=== PATIENT | male | born 1980 | race Caucasian/White ===

== ENCOUNTER 2016-11-19 09:08 | Emergency (ER) | payer SELFPAY ==
[~2016-11-19] VITALS: Ht 167.6 cm; Wt 75.0 kg
[2016-11-19] MEDS ORDERED: SODIUM CHLORIDE 0.9% 1,000 ML IV ONE (09:25)
[2016-11-19] MEDS ORDERED: LEVETIRACETAM 500MG PREMIX 100 ML IV ONE (09:30)
[2016-11-19 09:37] LABS: BASOPHILS % 0.4 % (0.0-2.0); EOSINOPHILS % 1.1 % (0.0-5.0); HEMATOCRIT. 51.2 % (42.0-52.0); HEMOGLOBIN. 17.4 g/dL (14.0-18.0); LYMPHOCYTES % 35.2 % (20.0-50.0); MEAN CORPUSCULAR HEMOGLOBIN 32.2 pg (28.0-32.0); MEAN CORPUSCULAR VOLUME 94.9 fL (80.0-94.0); MEAN PLATELET VOLUME 10.9 fl (7.4-10.4); MONOCYTES % 8.3 % (2.0-8.0); PLATELET 179 x1000/uL (130-400); WHITE BLOOD COUNT 10.7 x1000/uL (4.5-11.0)
[2016-11-19 09:47] LABS: PARTIAL THROMBOPLASTIN TIME 22.3 sec (24.0-34.0); PROTHROMBIN TIME 10.8 sec
[2016-11-19 09:52] LABS: ALANINE AMINOTRANSFERASE 58 IU/L (13-61); ALBUMIN 4.2 g/dL (3.4-5.0); ANION GAP 19; CALCIUM 8.7 mg/dL (8.5-10.1); CARBON DIOXIDE 22 mEq/L (21-32); CHLORIDE 101 mEq/L (98-107); ETHANOL BLOOD < 10 mg/dL; INDEX HEMOLYSI 1 (1-3); INDEX ICTERIC 1 (1-4); INDEX LIPEMIC 1 (1-3); UREA NITROGEN BLOOD 11 mg/dL (7-21); eGFR > 60 mL/min (>60)
[2016-11-19] MEDS ORDERED: POTASSIUM CHLORIDE 20MEQ TABLET SR PO ONE (10:30)
[2016-11-19 11:08] LABS: CLARITY URINE CLEAR (CLEAR); COLOR URINE YELLOW (YELLOW); GLUCOSE URINE NEGATIVE (NEGATIVE); KETONES URINE NEGATIVE (NEGATIVE); LEUKOCYTE ESTERASE URINE NEGATIVE (NEGATIVE); NITRITE URINE NEGATIVE (NEGATIVE); OCCULT BLOOD URINE NEGATIVE (NEGATIVE); PROTEIN URINE NEGATIVE (NEGATIVE); SPECIFIC GRAVITY URINE 1.013 (1.005-1.030)
[2016-11-19 11:27] LABS: *AMPHETAMINES SCREEN URINE NEGATIVE (NEGATIVE); *BARBITURATES SCREEN URINE NEGATIVE (NEGATIVE); *BENZODIAZEPINES SCREEN URINE NEGATIVE (NEGATIVE); *COCAINE SCREEN URINE NEGATIVE (NEGATIVE); CANNABINOID URINE SCREEN NEGATIVE (NEGATIVE); ECSTASY MDMA SCREEN URINE NEGATIVE (NEGATIVE); METHADONE URINE SCREEN NEGATIVE (NEGATIVE); OPIATES URINE SCREEN NEGATIVE (NEGATIVE); PHENCYCLIDINE URINE SCREEN NEGATIVE (NEGATIVE)
[2016-11-19 11:35] VITALS: BP 129/84
== END 2016-11-19 12:12 | disposition home or self-care (01) ==
LOC: ER 10:13
DX: R56.9 Unspecified convulsions (principal); R56.1 Post traumatic seizures; R61 Generalized hyperhidrosis; R55 Syncope and collapse
CPT/HCPCS: 36415; 70450; 71010; 80053; 80305; 81003; 85025; 85610; 85730; 93005; 96365; 99285; G0482; J1953; J7030; Z7610